=== PATIENT | male | born 1980 | race Two or more races ===

== ENCOUNTER 2019-12-14 09:31 | Emergency (ER) | payer BC ==
[~2019-12-14] VITALS: Ht 175.3 cm; Wt 90.7 kg
[2019-12-14 09:42] VITALS: BP 114/67
[2019-12-14] MEDS ORDERED: Hydrogen Peroxide 473ml Bottle TOPIC ONE ×2 (10:04→10:15)
[2019-12-14] MEDS ORDERED: AUGMENTIN 875-1 EAC1 ORAL (10:18)
[2019-12-14 10:21] VITALS: BP 114/67
--- NOTE | 2019-12-14 10:30 | Emergency Room Report ---
History of Present Illness General Chief Complaint: Laceration Source: Patient Present Illness HPI Patient presents with a puncture wound that occurred to his left hand This happened several hours ago prior to arrival patient reports that he was fixing his son's bike and the rim of the bike punctured the palmar aspect of his hand He went to work and things appeared normal however he started to have some bleeding from the area and presents to the emergency room he is unclear regarding his last tetanus shot denies any chest pain or shortness of breath denies any wrist or elbow pain Denies any fevers or chills pain is localized to the punctured area however able to move his hand Allergies: Coded Allergies: No Known Allergies (Unverified , 12/14/19) COVID-19 Screening Contact w/high risk pt: No Recent Travel to affected area: No Experienced COVID-19 symptoms?: No COVID-19 Testing performed HAND DEVELOPER: No Patient History Past Medical History: see triage record Reviewed Nursing Documentation: PMH: Agreed; PSxH: Agreed Nursing Documentation-PMH Past Medical History: No Stated History Review of Systems All Other Systems: negative except mentioned in HPI Physical Exam Vital Signs Date Time Temp Pulse Resp B/P (MAP) Pulse Ox O2 Delivery O2 Flow Rate FiO2 12/14/19 09:37 98.1 64 19 114/67 (83) 97 Room Air Sp02 EP Interpretation: reviewed, normal General Appearance: well appearing, no apparent distress Head: normocephalic, atraumatic Eyes: bilateral eye PERRL, bilateral eye EOMI ENT: EOM grossly intact Neck: supple, thyroid normal Respiratory: lungs clear, no respiratory distress, no retraction, no accessory muscle use Musculoskeletal: other - Puncture wound approximately 3 mm at the midpoint of the left palmar aspect of the hand no associated ecchymosis or expanding hematoma full flexion extension of all digits intact Neurologic: alert, other - Neurosensory intact Skin: other - As noted above Lymphatic: no adenopathy Procedures Laceration/Wound Repair Laceration/Wound Repair : Consent: Emergent Wound Location: upper extremity Wound's Depth, Shape: into muscle, irregular Wound Length (cm): 0 Wound Explored: contaminated Irrigated w/ Saline (ccs): 200 Betadine Prep?: Yes Wound Repaired With: Steri-strips - 1 Layer Closure?: No Patient Tolerated: Well Complications: None Progress Patient has sustained a puncture type injury, the area appears already well approximated is also fairly small in nature I do not feel suture would be appropriate given the findings on the overall clinical presentation Medical Decision Making Diagnostic Impression: Primary Impression: Laceration Additional Impression: puncture wound ER Course Given the history and presentation patient was recommended to have tetanus injection He is refusing at this time he understands the risk factors has full decision- making capacity and is continue to Refused the IM injection Area was cleansed and prepped 1 Steri-Strip was applied with appropriate coverage and the patient is stable for close outpatient follow-up he was placed on oral antibiotics as well Last Vital Signs Date Time Temp Pulse Resp B/P (MAP) Pulse Ox O2 Delivery O2 Flow Rate FiO2 12/14/19 10:21 98.1 79 19 114/67 97 Room Air Status: improved Disposition: HOME, SELF-CARE Condition: Improved Scripts Amoxicillin/Potassium Clav 875-125* (AUGMENTIN 875-125 TABLET*) 1 Each Tablet 1 TAB ORAL TWICE A DAY, #14 TAB Prov: Tino Alanis DO 12/14/19 Referrals: NOT CHOSEN IPA/,REFERRING (PCP) [facility] Patient Instructions: Puncture Wound, [id number] Additional Instructions: Patient is provided with the discharge instructions notified to follow up with primary doctor in the next 2-3 days otherwise return to the er with any worsening symptoms. Please note that this report is being documented using [employer]io[employer] technology. This can lead to erroneous entry secondary to incorrect interpretation by the dictating instrument. Tino Alanis DO December 14, 2019 10:30
== END 2019-12-14 10:21 | disposition home or self-care (01) ==
LOC: EMR 10:10
DX: S61.432A Puncture wound without foreign body of left hand, initial encounter (principal); W26.8XXA Contact with other sharp object(s), not elsewhere classified, initial encounter; Y92.9 Unspecified place or not applicable
CPT/HCPCS: 99282